=== PATIENT | female | born 1995 | race Caucasian/White ===

== ENCOUNTER 2019-09-09 10:09 | Emergency (ER) | payer SELFPAY ==
[2019-09-09 10:31] VITALS: BP 109/71
[2019-09-09] MEDS ORDERED: BUTALB/ACETAMINOPHEN/CAFFEINE TAB PO ONE (11:31)
[2019-09-09] MEDS ORDERED: HYDROcodone/ACETAMINOPHEN 5-325 MG TAB PO ONE (11:31)
--- NOTE | 2019-09-09 11:31 | Emergency Department Report ---
ED General Adult HPI - General Chief complaint: Headache Stated complaint: HEADACHE Time Seen by Provider: 09/09/19 11:08 Source: patient Mode of arrival: Ambulatory Limitations: No Limitations - History of Present Illness Initial comments: This is a 24-year-old female that presents with a moderate intensity headache since yesterday. She states she needs a note for work because she did not feel able to go. She says some nausea but no recent vomiting. She states that she's had similar such headaches in the past and that this one is not at all atypical. She denies fever or chills. She denies any focal neurological change difficulty with speech or ambulation. She has a family history of migraines. -: Gradual, hour(s), days(s) Location: head Radiation: non-radiation Quality: aching Consistency: intermittent Improves with: none Worsens with: none Associated Symptoms: denies other symptoms Treatments Prior to Arrival: other (Excedrin) - Related Data Previous Rx's Medication Instructions Recorded Last Taken Type Ciprofloxacin HCl [Cipro] 500 mg PO Q12H #10 tab 04/12/14 Unknown Rx Diphenoxylate/Atropine [Lomotil] 1 tab PO Q4H PRN #8 tablet 04/12/14 Unknown Rx HYDROcodone/APAP 5-325 [[place] 1 each PO Q6HR PRN #10 tablet 04/12/14 Unknown Rx 5-325 mg TAB] Promethazine [Phenergan] 25 mg PO Q6H PRN #10 tablet 04/12/14 Unknown Rx Ondansetron [Zofran ODT TAB] 8 mg PO Q12HR #20 tab.rapdis 11/07/18 Unknown Rx Phenazopyridine [Pyridium] 200 mg PO TID #10 tab 11/07/18 Unknown Rx Butalb/Acetamin/Caff 50-325-40 1 each PO Q4H PRN #10 tablet 09/09/19 Unknown Rx [Fioricet 50-325-40] Allergies Allergy/AdvReac Type Severity Reaction Status Date / Time famotidine [From Pepcid] Allergy Rash Verified 09/09/19 10:12 vancomycin Allergy Shortness Verified 09/09/19 10:12 of Breath ED Review of Systems ROS: Stated complaint: HEADACHE Other details as noted in HPI Constitutional: denies: chills, fever Eyes: denies: eye pain, eye discharge, vision change ENT: denies: ear pain, throat pain Respiratory: denies: cough, shortness of breath, wheezing Cardiovascular: denies: chest pain, palpitations Endocrine: no symptoms reported Gastrointestinal: denies: abdominal pain, nausea, diarrhea Genitourinary: denies: urgency, dysuria, discharge Musculoskeletal: denies: back pain, joint swelling, arthralgia Skin: denies: rash, lesions Neurological: headache. denies: weakness, numbness, paresthesias, confusion, abnormal gait, vertigo Psychiatric: denies: anxiety, depression Hematological/Lymphatic: denies: easy bleeding, easy bruising ED Past Medical Hx - Past Medical History Previous Medical History?: Yes Hx Diabetes: Yes Additional medical history: PCOS. pseduo tumor. SISAL PICKER shunt - Surgical History Past Surgical History?: Yes Additional Surgical History: jaw surgery. shunt placement - Social History Smoking Status: Never Smoker Substance Use Type: None - Medications Home Medications: Home Medications Medication Instructions Recorded Confirmed Last Taken Type Ciprofloxacin HCl [Cipro] 500 mg PO Q12H #10 tab 04/12/14 Unknown Rx Diphenoxylate/Atropine [Lomotil] 1 tab PO Q4H PRN #8 tablet 04/12/14 Unknown Rx HYDROcodone/APAP 5-325 [[place] 1 each PO Q6HR PRN #10 tablet 04/12/14 Unknown Rx 5-325 mg TAB] Promethazine [Phenergan] 25 mg PO Q6H PRN #10 tablet 04/12/14 Unknown Rx Ondansetron [Zofran ODT TAB] 8 mg PO Q12HR #20 tab.rapdis 11/07/18 Unknown Rx Phenazopyridine [Pyridium] 200 mg PO TID #10 tab 11/07/18 Unknown Rx Butalb/Acetamin/Caff 50-325-40 1 each PO Q4H PRN #10 tablet 09/09/19 Unknown Rx [Fioricet 50-325-40] ED Physical Exam - General Limitations: No Limitations General appearance: alert, in no apparent distress - Head Head exam: Present: atraumatic, normocephalic - Eye Eye exam: Present: normal appearance. Absent: scleral icterus - ENT ENT exam: Present: mucous membranes moist - Neck Neck exam: Present: normal inspection. Absent: tenderness, meningismus - Respiratory Respiratory exam: Present: normal lung sounds bilaterally. Absent: respiratory distress - Cardiovascular Cardiovascular Exam: Present: regular rate, normal rhythm. Absent: systolic murmur, diastolic murmur, rubs, gallop - GI/Abdominal GI/Abdominal exam: Present: soft, normal bowel sounds. Absent: distended, tenderness, guarding, rebound, rigid - Extremities Exam Extremities exam: Present: normal inspection - Back Exam Back exam: Present: normal inspection - Neurological Exam Neurological exam: Present: alert, oriented X3, CN II-XII intact, normal gait. Absent: motor sensory deficit - Psychiatric Psychiatric exam: Present: normal affect, normal mood - Skin Skin exam: Present: warm, dry, intact, normal color. Absent: rash ED Course Vital Signs 09/09/19 10:25 Temperature 98.5 F Pulse Rate 78 Respiratory 18 Rate Blood Pressure 109/71 [Right] O2 Sat by Pulse 98 Oximetry Critical care attestation.: If time is entered above; I have spent that time in minutes in the direct care of this critically ill patient, excluding procedure time. ED Disposition Clinical Impression: Cephalalgia Qualifiers: Headache type: unspecified Headache chronicity pattern: acute headache Intractability: not intractable Qualified Code(s): R51 - Headache Disposition: DC-01 TO HOME OR SELFCARE Is pt being admited?: No Does the pt Need Aspirin: No Condition: Stable Instructions: Acute Headache (ED) Additional Instructions: Return to the emergency department any acute worsening or change. Follow-up with primary care clinic is indicated. R axis directed. Prescriptions: Butalb/Acetamin/Caff 50-325-40 [Fioricet 50-325-40] 1 each PO Q4H PRN #10 tablet PRN Reason: Headache Referrals: [facility] [Provider Group] - 2-3 Days Forms: Work/School Release Form(ED) Time of Disposition: 11:30
== END 2019-09-09 11:54 | disposition home or self-care (01) ==
LOC: ED 10:09
DX: R51 Headache (principal); R11.0 Nausea; E11.9 Type 2 diabetes mellitus without complications; Z98.890 Other specified postprocedural states; Z79.899 Other long term (current) drug therapy; Z88.1 Allergy status to other antibiotic agents

== ENCOUNTER 2019-09-17 19:39 | Emergency (ER) | payer SELFPAY ==
[2019-09-17 20:37] VITALS: BP 110/71
--- NOTE | 2019-09-17 21:57 | Event Note ---
ED Screening Note Date of service: 09/17/19 Time: 21:55 ED Screening Note: c/o headache x 3 days hx of migraine and has shunt placement in brain to drain fluid Excedrin not helping feels like normal migraine, but just not improving This initial assessment/diagnostic orders/clinical plan/treatment(s) is/are subject to change based on patients health status, clinical progression and re- assessment by fellow clinical providers in the ED. Further treatment and workup at subsequent clinical providers discretion. Patient/guardian urged not to elope from the ED as their condition may be serious if not clinically assessed and managed. Initial orders include: ACC
== END 2019-09-18 | disposition left against medical advice (07) ==
LOC: ED 19:39
DX: R51 Headache (principal); Z53.21 Procedure and treatment not carried out due to patient leaving prior to being seen by health care provider